=== PATIENT | male | born 1990 | race Caucasian/White ===

== ENCOUNTER 2018-07-11 20:47 | Emergency (ER) | payer MEDICAID ==
[~2018-07-11] VITALS: Ht 182.9 cm; Wt 83.9 kg
[2018-07-11 20:59] VITALS: Ht 182.9 cm; Wt 83.9 kg
[2018-07-11 22:42] VITALS: BP 102/67
== END 2018-07-11 22:42 | disposition home or self-care (01) ==
LOC: ED 20:47
DX: J40 Bronchitis, not specified as acute or chronic (principal); Z88.1 Allergy status to other antibiotic agents; Z88.2 Allergy status to sulfonamides